=== PATIENT | male | born 1980 | race Two or more races ===

== ENCOUNTER 2019-11-30 20:09 | Emergency (ER) | payer OTHER ==
[~2019-11-30] VITALS: Ht 180.3 cm; Wt 68.0 kg
[2019-11-30 20:09] VITALS: BP 120/75
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
--- NOTE | 2019-11-30 20:52 | NUR ---
PT MEDICALLY CLEARED. IN CUSTODY. Patient discharged to home in stable condition. Written and verbal after care instructions given. Patient verbalizes understanding of instruction.
== END 2019-11-30 20:55 | disposition home or self-care (01) ==
LOC: ER 20:10
DX: S62.390A Other fracture of second metacarpal bone, right hand, initial encounter for closed fracture (principal); W22.01XA Walked into wall, initial encounter; Y93.89 Activity, other specified; Y92.89 Other specified places as the place of occurrence of the external cause; Y99.8 Other external cause status
CPT/HCPCS: 73130-TC